=== PATIENT | male | born 1945 | race Caucasian/White ===

== ENCOUNTER 2020-01-09 15:44 | Inpatient (IN) | payer MEDICARE, OTHER, SELFPAY ==
[2020-01-09] VITALS (13 sets, daily range): BP systolic 157–187; BP diastolic 46–90; PULSE 59–82; RESP 16–28; TEMP 36.7–37.1; O2SAT 96–100; BMI 24.9; BMI 25.0
--- NOTE | ~2020-01-09 | XR_ITS ---
EXAMINATION: XR chest 2V DATE: 01/09/2020 16:52 INDICATION: Shortness of breath TECHNIQUE: PA and lateral views of the chest were obtained. COMPARISON: Chest radiograph dated 01/14/2010 FINDINGS: Opacities at the bilateral posterior sulci consistent with small bilateral pleural effusions and asso ciated compressive atelectasis in the posterior lower lobes. Additional mild reticular opacities in t he bilateral lower lung zones most likely mild pulmonary edema although differential includes less li richi pneumonia. No pneumothorax. Calcified left hilar and mediastinal lymph nodes consistent with old granulomatous disease. Cardiomegaly. Dual lead pacemaker seen with leads projecting over the expecte d locations of the right atrium and right ventricle. Median sternotomy wires and mediastinal surgical clips are seen, likely from prior coronary artery bypass grafting. Mild thoracic spondylosis. IMPRESSION: 1. Likely congestive heart failure with cardiomegaly, mild pulmonary edema in the lower lung zones an d small bilateral pleural effusions. Reviewed, dictated and finalized at location A. [facility] IMPRESSION: 1. Likely congestive heart failure with cardiomegaly, mild pulmonary edema in t he lower lung zones and small bilateral pleural effusions.
--- NOTE | 2020-01-09 15:46 | ECG_ITS ---
Measurements Intervals [place] Rate: 65 P: 127 MI: 170 QRS: -65 QRSD: 226 T: 119 QT: 512 QTc: 534 Interpretive Statements ELECTRONIC ATRIAL PACEMAKER WITH INHIBITION ELECTRONIC VENTRICULAR PACEMAKER BASELINE ARTIFACT- I, II, III, AVR, AVL, AVF NO FURTHER INTERPRETATION IS POSSIBLE ATYPICAL ECG Electronically Signed On 01-10-2020 8:14:30 REFRIGERATING ENGINEER by Mane Drake D.O.
[2020-01-09 16:12] LABS: Basophils Percent Auto 0.3 % (0.2-1.2); Eosinophils Absolute Auto 0.1 K/mm3 (0-0.3); Eosinophils Percent Auto 2.1 % (0-4.4); Hematocrit 43.5 % (42.0-52.0); Hemoglobin 14.2 g/dL (14.0-18.0); Immature Granulocyte Absolute 0.02 K/mm3 (0.00-0.031); Immature Granulocyte Percent A 0.3 % (0-0.5); Lymphocytes Absolute Auto 1.68 K/mm3 (0.9-3.2); Lymphocytes Percent Auto 25.7 % (18.3-44.2); Mean Corpuscular HGB Conc 32.6 g/dl (32-36); Mean Corpuscular Hemoglobin 27.8 pg (26-34); Mean Corpuscular Volume 85.1 fl (80-100); Mean Platelet Volume 10.4 fl (7.4-10.4); Monocytes Absolute Auto 0.6 K/mm3 (0.1-0.6); Monocytes Percent Auto 9.8 % (2.6-8.5); Neutrophils Percent Auto 61.8 % (45.5-73.1); Platelet Count Result 168 k/mm3 (150-375); Red Blood Count 5.11 M/mm3 (4.6-6.20); Red Cell Distribution Width 14.3 % (11.5-14.5); White Blood Count 6.5 K/mm3 (4.5-10.0)
[2020-01-09 16:47] LABS: Blood Urea Nitrogen 24 mg/dL (9-20); Calcium 8.5 mg/dL (8.4-10.2); Carbon Dioxide 25 mmol/L (22-30); Chloride 103 mmol/L (98-107); Estimated Glomerular Filt Rate > 60; Glucose 68 mg/dL (75-110); Potassium 3.7 mmol/L (3.4-5.0); Sodium 141 mmol/L (137-145)
--- NOTE | 2020-01-09 17:03 | ED.SOB ---
HPI - SOB/Dyspnea General Chief Complaint: Shortness of Breath/Dyspnea Stated Complaint: SOB Time Seen by Provider: 01/09/20 17:02 Source: patient and RN notes reviewed Mode of arrival: other Limitations: no limitations History of Present Illness HPI Narrative: Pt is a 74 y/o male who presents to the ED with c/o SOB with wheezing that began this morning while walking up the stairs after working for an hour and a half. Pt began to have chest heaviness pain. He states that he sat down and his sx worsened. Pt called his PCP and his general merchandise salesperson and was recommended to come to the ED for further evaluation. Pt notes that his chest pain resolved while waiting in triage. Pt last saw his general merchandise salesperson in October 2019 and his next appointment with his general merchandise salesperson is in October 2020. Pt denies a fever. Pt's general merchandise salesperson is Dr. Chavez. Pt takes ASA 325 mg daily. MD elicited complaint: shortness of breath Pertinent past history: diabetes Onset (ago): hour(s) Context: occurred during exertion Timing: now resolved Known history of: diabetes Associated symptoms: chest pain (heaviness (resovled)) Related Data Home Medications Medication Instructions Recorded Confirmed aspirin 325 mg tablet 325 mg PO DAILY 09/09/19 insulin aspart U-100 100 unit/mL 65 unit SUB-Q TID ml 09/09/19 subcutaneous cartridge Allergies Allergy/AdvReac Type Severity Reaction Status Date / Time SULFACETAMIDE (Generic Allergy Unknown Y Uncoded 03/26/16 07:07 Allergy) Review of Systems Review of Systems: All systems reviewed & are unremarkable except as noted in HPI and below Constitutional: Constitutional: Denies fever(s) Cardiovascular: Cardiovascular: Reports chest pain (heaviness (resolved)) Respiratory: Respiratory: Reports dyspnea and Reports wheezing [facility] Past Medical History Medical History (Updated 01/09/20 @ 20:24 by Maral Ng MD) Arthritis Hyperlipidemia Hypertension Hypothyroidism Irregular heart beat Pacemaker Psoriasis (a type of skin inflammation) Seasonal allergies Skin lesion of neck Type 1 diabetes with an insulin pump Wrist fracture Surgical History Surgical History (Updated 01/09/20 @ 17:27 by Halie Howard) H/O aortic valve replacement History of surgical removal of skin lesion off neck Hx of CABG Family History Family History (Updated 01/09/20 @ 17:27 by Halie Howard) Father Acute myocardial infarction Family history of heart disease in male family member before age 55 Mother Hypertension Family history of heart disease in male family member before age 55 Pacemaker Social History Social History (Updated 01/09/20 @ 17:26 by Halie Howard) Smoking packs per day: 3 Smoking cigarettes per day: 60.0 Years smoked: 10 Smoking pack-years: 30.00 Smoking status: Former smoker Tobacco type: cigarettes Smoking end date: 11/16/83 Alcohol intake: never Gender identity (if verbalized by the patient): Female Exam Narrative: Exam Narrative: GENERAL: Well-appearing, well-nourished, and in no acute distress. HEAD: Normocephalic, atraumatic EYES: PERRLA and EOMI, conjunctiva clear without discharge THROAT:Mucous membranes moist, Oropharynx normal without erythema, exudate, peritonsillar swelling or fluctuance NECK: Supple, without lymphadenopathy or mass RESPIRATORY: No respiratory distress, Airway patent, Respirations non-labored, Expiratory wheezing posterior bilaterally HEART: Regular rate and rhythm. harsh systolic murmur. Normal peripheral pulses. ABDOMEN: Soft, nontender, nondistended, normal active bowel sounds. No masses. No rebound or guarding, No organomegaly. EXTREMITIES: bilateral 2+ pitting lower extremity edema, normal strength with full range of motion. SKIN: Warm, dry, normal color without rash NEURO: Alert and oriented x3. CN 2-12 grossly intact. No focal deficits. PSYCH: Normal mood and affect. Course Consultations Consulta
--- NOTE | 2020-01-09 17:28 | PC.NURSE ---
called lab to add on labs ordered and lamont said she would check for the blood when she got time.
[2020-01-09] MEDS: ALBUTEROL SULFATE NEB 2.5 MG/0.5 ML INH 5 MG INHALATION (17:41)
[2020-01-09] MEDS: IPRATROPIUM BR 0.02% INH SOLN 0.5 MG/2.5 ML VIAL INHALATION (17:41)
[2020-01-09] MEDS: FUROSEMIDE INJ 40 MG/4 ML VIAL IV PUSH (17:59)
[2020-01-09] MEDS: NITROGLYCERIN OINTMENT 1 INCH DOSE TRANSDERM (18:00)
[2020-01-09 18:14] LABS: Glucose Point of Care 45 (65-105)
--- NOTE | 2020-01-09 18:16 | PC.NURSE ---
Patient given apple juice x2 tp treat low blood glucose per EDP. Heart Healthy diet tray ordered for patient at this time. EDP aware of patient's blood glucose
--- NOTE | 2020-01-09 18:25 | PC.NURSE ---
REDRAWS SENT TO LAB
[2020-01-09 18:27] LABS: Prothrombin Time 12.8 Seconds (11.1-14.7)
[2020-01-09 18:44] LABS: Glucose Point of Care 84 (65-105)
[2020-01-09 18:56] LABS: NT Pro B Type Natriuretic Pept 4030 PG/ML (5-100)
--- NOTE | 2020-01-09 21:01 | ADMGEN ---
This patient, Ricci Olvera, was admitted to IMU Room 209-01. Patient/family oriented to hospital policies and general routines including ID bracelet, bed and alarms, visiting hours, pain management, procedures, bathroom and other care routines, personal items, smoking policy, room service/diet, and visiting hours. Valuables list has been completed. Information on how to activate the Rapid Response Team has been discussed. Patient/Family are encouraged to report perceived risks to care and to ask questions if they do not understand what they are told or what they should do.
[2020-01-09 21:37] LABS: Glucose Point of Care 134 (65-105)
--- NOTE | 2020-01-09 22:00 | PM.IMHP ---
H&P: HPI History of Present Illness Chief complaint: CHF EXACERBATION,ELEVATED TROPONIN Narrative: Date and time of patient contact: 01/09/2020 at 10:00 p.m. Ricci Olvera is a 74 year old male with a past medical history of single-vessel coronary artery disease, aortic valve replacement and diabetes mellitus on insulin pump who presented to the ER from home via private vehicle due to shortness of breath and chest heaviness. The patient reports chronic throat clearing for the last couple of months. He is very active in vigorous at baseline. He had noticed some wheezing when lying down for the last 3 weeks. Over the last few hours when he was lying down in the ER he noticed orthopnea. 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 On Thursday a similar episode occurred. Today he had noticed wheezing when sitting still accompanied by a fleeting episode of chest heaviness that lasted only a few seconds. He called Dr. Chavez's office and was directed to come into the ER for evaluation. Patient denies any paroxysmal nocturnal dyspnea, lower extremity swelling or palpitations. He denies having an actual diagnosis of CHF. According to cardiology notes patient has systolic dysfunction without heart failure at the time of his last cardiology visit in July 2019. He had an echocardiogram and Dr. 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 He had a pacemaker placed back in 2000 due to what sounds complete heart block with his pacemaker being upgraded to a Biotronik dual chamber pacemaker in August 2018. He is a diabetic and is on insulin pump. His hemoglobin A1c has been below 7 for several years. He does have intermittent episodes of hypoglycemia that occur mostly at night. His last hypoglycemic episode was prior to coming to the ER. In his initial glucose in the ER was 45. He took some oral nutrition is repeat glucose was in the 80s and when he arrived to the floor his glucoses were in the 130s. His supervisor instrument maintenance tells him that he has some mild peripheral neuropathy on microfilament testing but the patient is asymptomatic. He denies any cough, congestion, fevers or chills. He has been taking his medications as directed. However his blood pressures were moderately elevated and continued to be so. His most recent blood pressure 177/52. Review of Systems Review of Systems: Narrative: Except as documented in the HPI, all other systems were reviewed and are negative. 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 His pacemaker was replaced in 2018 with a Biotronik and dual chamber device Hyperlipidemia Hypertension Hypothyroidism Irregular heart beat Pacemaker Psoriasis (a type of skin inflammation) Seasonal allergies Skin lesion of neck Type 1 diabetes with an insulin pump Wrist fracture Surgical History Surgical History (Updated 01/09/20 @ 23:49 by Lalita Mcallister DO) H/O aortic valve replacement Medtronic 23 mm freestyle valve aortic valve replacement with single-vessel bypass with aortic root plasty 2015. He has perivalvular aortic valve insufficiency History of surgical removal of skin lesion off neck Hx of CABG One vessel CABG performed at [facility] in 2016 the same time as is aortic valve was replaced with a porcine valve per his report Social History Social History (Updated 01/09/20 @ 23:50 by Lalita Mcallister DO) Social History: Primary care
[2020-01-09] MEDS: METOPROLOL TARTRATE INJ 5 MG/5 ML VIAL IV PUSH (23:35)
[2020-01-09 23:50] LABS: Troponin I 0.086 ng/mL (0.000-0.034)
[2020-01-10] VITALS (14 sets, daily range): BP systolic 136–171; BP diastolic 37–51; PULSE 63–75; RESP 18–20; TEMP 36.2–36.8; O2SAT 95–99
--- NOTE | 2020-01-10 | ECHO_ITS ---
Patient Info Name: Ricci Olvera Age: 74 years : 1945 Gender: Male Ht: 71 in Wt: 181 lbs BSA: 2.04 m2 HR: 70 bpm BP: 145 / 50 mmHg Heart Rhythm: Paced Technical Quality: Good Exam Date: 01/10/2020 11:06 AM Exam Location: [facility] Patient Status: Inpatient Admit Date: 01/09/2020 Staff Ordering Physician: Ankit Marshall MD Manual Arts Teacher: Agusto Francisco RDCS Attending Provider: Lalita Mcallister DO Exam Type: CA echo dop color flow w con Study Info Indications I50.9 - Heart failure, unspecified Complete two-dimensional, color flow and Doppler transthoracic echocardiogram is performed with contrast to opacify the left ventrical and to improve the deliniation of the left ventrical endocarial boarders. Strain analysis performed. Contrast/Agitated Saline Contrast/Ag. Saline: Definity Amount: 2.00 ml Administered By: Viky Frank RN Existing IV Access: Yes History/Risk Factors CHF w/ 1vCABG and AVR, heart block s/p PPM, HTN, SOB, elevated trops. Summary 1. Left ventricular chamber dimension is severely enlarged. 2. Left ventricular systolic function is severely reduced, estimated at 20-25%. 3. There is moderately increased left ventricular wall thickness. 4. Left ventricular septal wall motion is abnormal with septal motion related to pacing. 5. The left ventricular diastolic function is grade I diastolic dysfunction. 6. The apical septum is akinetic. 7. The inferior wall, anterior wall, anterolateral wall, anteroseptal wall, inferolateral wall, basal inferoseptal, and mid inferoseptal are hypokinetic. 8. The apical cap is dyskinetic. 9. Left atrial chamber dimension is mildly enlarged. 10. There is mild aortic valve stenosis with a peak velocity of 241.40 cm/s, mean gradient of 10 mmHg, and aortic valve area of 1.59 cm2. 11. The prosthetic aortic valve is not well visualized. The aortic insufficiency appears to be perivalvular and is at least moderate. 12. There is moderate to severe mitral valve regurgitation. 13. There is mild tricuspid valve regurgitation. 14. Mild pulmonary hypertension, estimated pulmonary arterial systolic pressure is 36 mmHg. 15. There is mild pulmonic regurgitation. Left Ventricle Left ventricular chamber dimension is severely enlarged. Left ventricular systolic function is severely reduced, estimated at 20-25%. There is moderately increased left ventricular wall thickness. Left ventricular septal wall motion is abnormal with septal motion related to pacing. The left ventricular diastolic function is grade I diastolic dysfunction. The apical septum is akinetic. The inferior wall, anterior wall, anterolateral wall, anteroseptal wall, inferolateral wall, basal inferoseptal, and mid inferoseptal are hypokinetic. The apical cap is dyskinetic. Right Ventricle Right ventricular chamber dimension is normal. Right ventricular systolic function is normal. Left Atria Left atrial chamber dimension is mildly enlarged. Right Atria Right atrial chamber dimension is normal. Atrial Septum Intact interatrial septum visualized by color flow imaging. Aortic Valve The aortic valve is not well visualized. There is mild aortic valve stenosis with a peak velocity of 241.40 cm/s, mean gradient of 10 mmHg, and aortic valve area of 1.59 cm2. There is moderate aortic valve regurgitation. The prosthetic aortic valve is not well visualized. The aortic insufficiency appears to be perivalvular and
[2020-01-10 02:41] LABS: Blood Urea Nitrogen 22 mg/dL (9-20); Calcium 8.4 mg/dL (8.4-10.2); Carbon Dioxide 29 mmol/L (22-30); Chloride 103 mmol/L (98-107); Estimated CRCL calculation 60 ml/min; Estimated Glomerular Filt Rate > 60; Glucose 75 mg/dL (75-110); Potassium 3.5 mmol/L (3.4-5.0); Sodium 140 mmol/L (137-145)
[2020-01-10] MEDS: LEVOTHYROXINE SODIUM 100 MCG TABLET PO (05:15)
[2020-01-10 08:29] LABS: Glucose Point of Care 70 (65-105)
--- NOTE | 2020-01-10 08:44 | PM.CNCAR ---
Assessment and Plan Assessment and plan (1) Acute on chronic systolic CHF (congestive heart failure): Code(s): I50.23 - Acute on chronic systolic (congestive) heart failure Status: Acute Assessment and Plan: 74-year-old male with history of CAD, valvular heart disease/severe aortic regurgitation status post aortic valve placement using a Medtronic freestyle aortic root heart valve 23 mm; attachment of coronary arteries with buttons of aortic tissue to the freestyle heart valve, patch aortoplasty over anterior 2/3 of aorta to bridge the gap between the [place] aorta and aortic valve; MONSON to LAD on 09/21/2007 at [facility]; CHF with reduced ejection fraction, history of AV block status post Biotronik pacemaker placement, diabetes mellitus on insulin. Patient admitted with acute on chronic CHF with reduced ejection fraction. EKG shows AV paced rhythm. Troponins are mildly elevated, and likely non ACS later in the setting of CHF exacerbation. -continue diuresis with IV furosemide, to be switched to p.o. tomorrow if volume status is improving. -change metoprolol tartrate to carvedilol at low dose, to be optimized as tolerated; continue lisinopril. May consider switching lisinopril to sacubitril/valsartan after 36 hour washout as an outpatient. Additional medication to be considered include spironolactone. -continue aspirin and statin. -patient's previous echocardiogram reported moderate LV systolic dysfunction with moderate aortic regurgitation with possible perivalvular leak. Will repeat echocardiogram with Doppler to reassess LV function, wall motion and any progression of the aortic regurgitation. Need for further testing including ANJUM to be determined. Patient will likely need further workup including ischemic workup. It is uncertain at this point how much of patient's LV dysfunction is contributed by degenerative aortic valve causing aortic regurgitation, and from possible underlying ischemia. If patient has significant aortic regurgitation, then his surgical candidacy will need to be determined after CT surgical consultation. Obviously, he will need ischemic workup prior to surgical evaluation. The plan was discussed with the patient and the is in agreement. (2) History of coronary artery bypass graft x 1: Code(s): Z95.1 - Presence of aortocoronary bypass graft Status: Acute Assessment and Plan: Aspirin, statin. See plan above (3) History of aortic root repair: Code(s): Z98.890 - Other specified postprocedural states Status: Acute Assessment and Plan: See plan above (4) History of aortic valve replacement with bioprosthetic valve: Code(s): Z95.3 - Presence of xenogenic heart valve Status: Acute Assessment and Plan: See plan above. Will do echo with Doppler, need for ANJUM to be determined. History of Present Illness History of Present Illness Consult date/time: 01/10/20 08:44 Due to consult: 01/09/2020 Reason for consult: Congestive heart failure Requesting physician:Dr Ng Chief complaint: Worsening shortness of breath HPI: 74-year-old male with history of CAD, valvular heart disease/severe aortic regurgitation status post aortic valve placement using a Medtronic freestyle aortic root heart valve 23 mm; attachment of coronary arteries with buttons of aortic tissue to the freestyle heart valve, patch aortoplasty over anterior 2/3 of aorta to bridge the gap between the [place] aorta and aortic valve; MONSON to LAD on 09/21/2007 at [facility]; CHF with reduced ejection fraction, history of AV block status post Biotronik pacemaker placement, diabetes mellitus on insulin. Patient was admitted to [facility] on 01/09/2020 with complaints of shortness of breath that got worse on the day of admission. Patient states that he has been wheezing especially while lying flat for about 4 weeks. His symptoms got worse over time, and on the day
[2020-01-10] MEDS: POTASSIUM CHLORIDE 20 MEQ TABLET 40 MEQ PO (10:20)
[2020-01-10] MEDS: carvediloL 3.125 MG TABLET PO ×2 (10:21→20:56)
[2020-01-10] MEDS: lisinopriL 5 MG TABLET PO (10:21)
[2020-01-10] MEDS: OMEGA 3 POLYUNSAT FATTY ACIDS 1 GM CAP PO (10:21)
[2020-01-10] MEDS: ASPIRIN 325 MG TABLET PO (10:21)
[2020-01-10] MEDS: ATORVASTATIN 20 MG TABLET PO (10:22)
[2020-01-10] MEDS: ENOXAPARIN 40 MG/0.4 ML SYRINGE SUB-Q ×2 (10:22→20:56)
[2020-01-10] MEDS: MULTIVITAMINS /C LUTEIN (CENTRUM SILVER) TABLET *BKC 1 TAB PO (10:22)
[2020-01-10] MEDS: FUROSEMIDE INJ 40 MG/4 ML VIAL IV PUSH (10:23)
[2020-01-10] MEDS: PERFLUTREN LIPID MICROSPHERES 1.5 ML VIAL DILUTED TO 10 ML TOTAL VOLUME IV PUSH (11:49)
[2020-01-10 13:22] LABS: Glucose Point of Care 123 (65-105)
--- NOTE | 2020-01-10 16:55 | PM.IMPN ---
Progress Note: A&P Assessment and Plan (1) Acute on chronic systolic CHF (congestive heart failure): Code(s): I50.23 - Acute on chronic systolic (congestive) heart failure Status: Acute Assessment and Plan: IV Lasix, RAFAEL-inhibitor, and beta-osbaldo has been changed to Coreg. EF only 20-25% so will add spironolactone also Cardiology decide whether needs ANJUM and/or repeat catheterization (2) History of coronary artery bypass graft x 1: Code(s): Z95.1 - Presence of aortocoronary bypass graft Status: Acute Assessment and Plan: Troponins are flat and probable secondary to heart failure and not acute coronary syndrome. Continue aspirin, statin, and beta-osbaldo (3) History of aortic valve replacement with bioprosthetic valve: Code(s): Z95.3 - Presence of xenogenic heart valve Status: Acute Assessment and Plan: Paravalvular leak which has been present previously seen again. May need ANJUM are catheterization to evaluate further Especially with moderate IN also (4) Diabetes mellitus with hypoglycemia: Qualifiers: Diabetes mellitus type: type 1 Diabetes mellitus complication detail: without coma Qualified Code(s): E10.649 - Type 1 diabetes mellitus with hypoglycemia without coma Code(s): E11.649 - Type 2 diabetes mellitus with hypoglycemia without coma Status: Acute Assessment and Plan: Continue insulin pump (5) Hypertension: Qualifiers: Hypertension type: essential hypertension Qualified Code(s): I10 - Essential (primary) hypertension Code(s): I10 - Essential (primary) hypertension Status: Acute Assessment and Plan: Blood pressure adequate will increase Rafael and beta-osbaldo as tolerated (6) DVT prophylaxis: Code(s): Z29.9 - Encounter for prophylactic measures, unspecified Status: Acute Assessment and Plan: Lovenox Subjective Date/time seen: 01/10/20 16:55 Interval history: Date of visit 01/10. 74-year-old white male with bioprosthetic aortic valve and history of MONSON graft to the LAD at the time of his surgery presented with increasing shortness of breath. Thought to have acute on chronic systolic heart failure. Was given IV Lasix in the emergency room and feels much better already. Had some minimal edema which has subsided. No chest pain. Exam Narrative: Exam Narrative: Blood pressure 144/50 pulse is 70 and regular afebrile sat and 90-94% on room air Pupil equal reactive to light sclera anicteric Lungs are clear hear no wheezing or consolidation CV regular hear no definite murmurs Abdomen is soft nontender no masses Extremities without edema good distal pulses Neuro alert pleasant cooperative no focal deficits Objective Data Vital Signs Vital Signs: Vital Signs - 24 hr 01/09/20 17:02 01/09/20 17:16 01/09/20 17:41 Temperature Pulse Rate 73 71 70 Respiratory Rate 19 28 H 18 Blood Pressure 169/63 H Pulse Oximetry 97 96 01/09/20 17:47 01/09/20 18:00 01/09/20 18:16 Temperature Pulse Rate 70 68 73 Respiratory Rate 18 24 H 26 H Blood Pressure 176/65 H 187/66 H Pulse Oximetry 98 01/09/20 18:22 01/09/20 19:31 01/09/20 21:10 Temperature 36.7 C Pulse Rate 73 74 73 Respiratory Rate 20 16 20 Blood Pressure 187/66 H 167/66 H 177/52 H Pulse Oximetry 100 98 98 01/09/20 22:00 01/09/20 23:30 01/09/20 23:35 Temperature 36.7 C Pulse Rate 70 59 L 82 Respiratory Rate 20 Blood Pressure 157/46 H Pulse Oximetry 97 01/10/20 00:00 01/10/20 02:00 01/10/20 04:00 Temperature 36.8 C Pulse Rate 75 73 73 Respiratory Rate 18 Blood Pressure 136/37 L Pulse Oximetry 98 01/10/20 06:00 01/10/20 08:00 01/10/20 08:13 Temperature 36.6 C Pulse Rate 68 68 71 Respiratory Rate 20 Blood Pressure 145/50 H Pulse Oximetry 97 01/10/20 10:21 01/10/20 13:27 Temperature 36.2 C L Pulse Rate 63 73 Respiratory Rate 20 Blood Pressure 149/47 H Pu
[2020-01-10 17:27] LABS: Glucose Point of Care 52 (65-105)
[2020-01-10 17:44] LABS: Glucose Point of Care 94 (65-105)
[2020-01-10 21:01] LABS: Glucose Point of Care 157 (65-105)
[2020-01-11] VITALS (11 sets, daily range): BP systolic 129–163; BP diastolic 47–53; PULSE 65–80; RESP 18; TEMP 36.1–36.7; O2SAT 96–100
[2020-01-11 05:04] LABS: Blood Urea Nitrogen 22 mg/dL (9-20); Calcium 8.2 mg/dL (8.4-10.2); Carbon Dioxide 28 mmol/L (22-30); Chloride 101 mmol/L (98-107); Estimated CRCL calculation 60 ml/min; Estimated Glomerular Filt Rate > 60; Glucose 74 mg/dL (75-110); Potassium 3.7 mmol/L (3.4-5.0); Sodium 139 mmol/L (137-145)
[2020-01-11 05:05] LABS: Alanine Aminotransferase 45 U/L (4-50); Albumin Level 3.2 g/dL (3.5-5.1); Alkaline Phosphatase 62 U/L (38-126); Aspartate Amino Transferase 35 U/L (17-59); Bilirubin,Total 0.8 mg/dL (0.2-1.3)
[2020-01-11 05:34] LABS: Thyroid Stimulating Hormone 0.576 uIU/mL (0.465-4.680)
[2020-01-11] MEDS: HOME MEDICATION 1 EACH XX (06:22)
[2020-01-11] MEDS: LEVOTHYROXINE SODIUM 100 MCG TABLET PO (06:22)
--- NOTE | 2020-01-11 07:53 | PM.IMPN ---
Progress Note: A&P Assessment and Plan (1) Acute on chronic systolic CHF (congestive heart failure): Code(s): I50.23 - Acute on chronic systolic (congestive) heart failure Status: Acute Assessment and Plan: IV Lasix, RAFAEL-inhibitor, and beta-osbaldo has been changed to Coreg and icreased to 6.25 with good bp EF only 20-25% so added spironolactone also Cardiology decide whether needs ANJUM and/or repeat catheterization (2) History of coronary artery bypass graft x 1: Code(s): Z95.1 - Presence of aortocoronary bypass graft Status: Acute Assessment and Plan: Troponins are flat and probable secondary to heart failure and not acute coronary syndrome. Continue aspirin, statin, and beta-osbaldo (3) History of aortic valve replacement with bioprosthetic valve: Code(s): Z95.3 - Presence of xenogenic heart valve Status: Acute Assessment and Plan: Paravalvular leak which has been present previously seen again. May need ANJUM are catheterization to evaluate further Especially with moderate DC also (4) Diabetes mellitus with hypoglycemia: Qualifiers: Diabetes mellitus type: type 1 Diabetes mellitus complication detail: without coma Qualified Code(s): E10.649 - Type 1 diabetes mellitus with hypoglycemia without coma Code(s): E11.649 - Type 2 diabetes mellitus with hypoglycemia without coma Status: Acute Assessment and Plan: Continue insulin pump (5) Hypertension: Qualifiers: Hypertension type: essential hypertension Qualified Code(s): I10 - Essential (primary) hypertension Code(s): I10 - Essential (primary) hypertension Status: Acute Assessment and Plan: Blood pressure adequate will increase Rafael and beta-osbaldo as tolerated (6) DVT prophylaxis: Code(s): Z29.9 - Encounter for prophylactic measures, unspecified Status: Acute Assessment and Plan: Lovenox Subjective Date/time seen: 01/11/20 07:53 Interval history: Date of visit 01/11. 74-year-old white male with bioprosthetic aortic valve and history of MONSON graft to the LAD at the time of his surgery presented with increasing shortness of breath. acute on chronic systolic heart failure. Continues to feel well with diuresis . No SOB or CP.. Had some minimal edema which has subsided. Exam Narrative: Exam Narrative: Blood pressure 140/50 pulse is 66 and regular afebrile sat and 90-94% on room air Pupil equal reactive to light sclera anicteric Lungs are clear hear no wheezing or consolidation CV regular SAFIA LLSB and radiating to axilla, diastolic murmer heard best 2 R intercostal space Abdomen is soft nontender no masses Extremities without edema good distal pulses Neuro alert pleasant cooperative no focal deficits Objective Data Vital Signs Vital Signs: Vital Signs - 24 hr 01/10/20 08:00 01/10/20 08:13 01/10/20 10:00 Temperature 36.6 C Pulse Rate 68 71 72 Respiratory Rate 20 Blood Pressure 145/50 H Pulse Oximetry 97 01/10/20 10:21 01/10/20 12:00 01/10/20 13:27 Temperature 36.2 C L Pulse Rate 63 73 73 Respiratory Rate 20 Blood Pressure 149/47 H Pulse Oximetry 95 01/10/20 16:00 01/10/20 18:00 01/10/20 20:00 Temperature 36.2 C L 36.6 C Pulse Rate 66 68 69 Respiratory Rate 20 18 Blood Pressure 171/51 H 153/44 H Pulse Oximetry 98 99 01/10/20 22:00 01/11/20 00:00 01/11/20 02:00 Temperature 36.6 C Pulse Rate 70 80 69 Respiratory Rate 18 Blood Pressure 150/47 H Pulse Oximetry 96 01/11/20 03:50 01/11/20 04:00 01/11/20 06:00 Temperature 36.7 C Pulse Rate 79 67 65 Respiratory Rate 18 Blood Pressure Pulse Oximetry 99 Intake/Output Intake/Output: Intake & Output 01/08/20 01/09/20 01/10/20 01/11/20 23:59 23:59 23:59 23:59 Intake Total 850 350 Output Total 3251 700 Balance -2401 -350 Meds/Results Medications: Active Medications Generic Name Dose Route Start La
[2020-01-11] MEDS: POTASSIUM CHLORIDE 20 MEQ TABLET 40 MEQ PO (08:57)
[2020-01-11] MEDS: ASPIRIN 325 MG TABLET PO (08:57)
[2020-01-11] MEDS: ATORVASTATIN 20 MG TABLET PO (08:57)
[2020-01-11] MEDS: carvediloL 6.25 MG TABLET PO (08:58)
[2020-01-11] MEDS: FUROSEMIDE INJ 40 MG/4 ML VIAL IV PUSH (09:00)
[2020-01-11] MEDS: MULTIVITAMINS /C LUTEIN (CENTRUM SILVER) TABLET *BKC 1 TAB PO (09:02)
[2020-01-11 09:03] LABS: Glucose Point of Care 75 (65-105)
[2020-01-11] MEDS: SPIRONOLACTONE 25 MG TABLET PO (09:03)
[2020-01-11] MEDS: OMEGA 3 POLYUNSAT FATTY ACIDS 1 GM CAP PO (09:03)
[2020-01-11] MEDS: ENOXAPARIN 40 MG/0.4 ML SYRINGE SUB-Q (09:06)
[2020-01-11] MEDS: lisinopriL 10 MG TABLET PO (09:06)
--- NOTE | 2020-01-11 11:05 | PM.PNCARD ---
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 Agree with Dr. Marshall that this gentleman will require further evaluation of his aortic valve as well as his coronary disease and then surgical consultation. His previous surgeon at [facility] has retired and therefore will not be available to see this gentleman in consultation. I will contact his colleagues at that hospital to determine if the best course of action is to refer him to there valve Clinic for referral/consultation or if the case is complex enough for he should be referred downtown to [place]. The patient is now asymptomatic I will shift his furosemide to a p.o. regimen of 40 mg daily and he seems to be stable enough to be discharged from the hospital. I will determine referral to a valve clinical education consultant as an outpatient Time with patient: 15 - 25 minutes Subjective Date/time seen: Date of service: 01/11/20 11:05 Interval history: Follow-up visit for congestive heart failure in patient with valvular heart disease, coronary artery disease and complete heart block. Patient states he is feeling well today after the 1st 48 hours in the hospital with diuresis he is no longer short of breath and offers no complaints. Exam Const: General: comfortable and no acute distress HENMT: Mouth: Yes moist mucous membranes Eyes: Sclera: sclerae normal Pupils: Equal, round and reactive pupils present Neck: Neck: supple and no JVD Thyroid: thyroid normal Resp: Effort & Inspection: normal respiratory effort Auscultation: clear to auscultation bilaterally Cardio: Rate: regular rate and tachycardic Rhythm: regular rhythm Other: Patient has a grade 2-3 diastolic decrescendo murmur of aortic valve regurgitation audible loudest at the right upper sternal border. GI: Auscultation: normal bowel sounds Neuro: Cognition (Neuro): normal cognition Extrem: General: normal to inspection Objective Data Vital Signs Vital Signs: Vital Signs - 24 hr 01/10/20 12:00 01/10/20 13:27 01/10/20 16:00 Temperature 36.2 C L Pulse Rate 73 73 66 Respiratory Rate 20 Blood Pressure 149/47 H Pulse Oximetry 95 02/25/20 18:00 01/10/20 20:00 01/10/20 22:00 Temperature 36.2 C L 36.6 C Pulse Rate 68 69 70 Respiratory Rate 20 18 Blood Pressure 171/51 H 153/44 H Pulse Oximetry 98 99 01/11/20 00:00 01/11/20 02:00 01/11/20 03:50 Temperature 36.6 C 36.7 C Pulse Rate 80 69 79 Respiratory Rate 18 18 Blood Pressure 150/47 H Pulse Oximetry 96 99 01/11/20 04:00 01/11/20 06:00 01/11/20 08:00 Temperature 36.1 C L Pulse Rate 67 65 70 Respiratory Rate 18 Blood Pressure 163/53 H Pulse Oximetry 100 01/11/20 08:58 Temperature Pulse Rate 71 Respiratory Rate Blood Pressure Pulse Oximetry Intake/Output Intake/Output: Intake & Output 01/08/20 01/09/20 01/10/20 01/11/20 23:59 23:59 23:59 23:59 Intake Total 850 590 Output Total 3251 700 Balance -2401 -110 Meds/Results Medications: Active Medications Generic Name Dose Route Start Last Admin Trade Name Freq PRN Reason Stop Dose Admin Aspirin 325 mg 01/10/20 09:00 01/11/20 08:57 Aspirin PO 325 mg DAILY [facility] Administration Atorvastatin Calcium 20 mg 01/10/20 09:00 01/11/20 08:57 Lipitor PO 20 mg [id number] NATHALY Administration Carvedilol 6.25 mg 01/11/20 09:00 01/11/20 08:58 Coreg PO 6.25 mg Q12HR [facility] Administration Dextrose 12.5 gm 01/09/20 23:17 Dextrose 50% Syringe IV PUSH PRN PRN Hypoglycemia Protocol Enoxaparin Sodium 40 mg 01/10/20 09:00 01/11/20 09:06 Lovenox SUB-Q 40 mg DAILY [facility] A
[2020-01-11 12:17] LABS: Glucose Point of Care 108 (65-105)
--- NOTE | 2020-01-11 18:02 | PM.DS ---
DS: Diagnosis Admitting Diagnosis Admitting Diagnosis: Acute systolic (congestive) heart failure Discharge Diagnosis (1) Acute on chronic systolic CHF (congestive heart failure): Code(s): I50.23 - Acute on chronic systolic (congestive) heart failure Status: Acute Assessment and Plan: Responded to IV Lasix, RAFAEL-inhibitor, and beta-osbaldo has been changed to Coreg and icreased to 6.25 with good bp EF only 20-25% so added spironolactone also Cardiology decided to send to [facility] valve clinic to determine whether needs ANJUM and/or repeat catheterization for possible repeat valve surgery (2) History of coronary artery bypass graft x 1: Code(s): Z95.1 - Presence of aortocoronary bypass graft Status: Acute Assessment and Plan: Troponins are flat and probable secondary to heart failure and not acute coronary syndrome. Continue aspirin, statin, and beta-osbaldo (3) History of aortic valve replacement with bioprosthetic valve: Code(s): Z95.3 - Presence of xenogenic heart valve Status: Acute Assessment and Plan: Paravalvular leak which has been present previously seen again. May need ANJUM are catheterization to evaluate further . As above Especially with moderate MT also (4) Diabetes mellitus with hypoglycemia: Qualifiers: Diabetes mellitus type: type 1 Diabetes mellitus complication detail: without coma Qualified Code(s): E10.649 - Type 1 diabetes mellitus with hypoglycemia without coma Code(s): E11.649 - Type 2 diabetes mellitus with hypoglycemia without coma Status: Acute Assessment and Plan: Continue insulin pump, well controlled (5) Hypertension: Qualifiers: Hypertension type: essential hypertension Qualified Code(s): I10 - Essential (primary) hypertension Code(s): I10 - Essential (primary) hypertension Status: Acute Assessment and Plan: Blood pressure adequate and increased Rafael and beta-osbaldo DS: Summary Hospital Course Hospital Course: 74-year-old white male status post aortic valve replacement and MONSON bypass graft of the LAD in the distant past. Presented with increasing shortness of breath on exertion and weakness. Found to be will look be mild systolic failure and was diuresed. Immediately got relieve within a short period of time. Echo revealed EF of only 20-25% with a periaortic prosthetic valve leak, and moderate mitral insufficiency. Is RAFAEL-inhibitor was increased to 10 mg, beta-osbaldo was changed to Coreg, Lasix was added daily along with spironolactone. Cardiology will have him follow-up with a valve clinic at [facility] for further evaluation and intervention Will have a BMP drawn in a week Time Spent with Patient Time attestation: Total time spent providing and/or coordinating discharge services: 35 minutes Exam Narrative: Exam Narrative: Condition on discharge Blood pressure 130/50 pulse 66 satting 97% on room air Lungs clear CV systolic murmur lower left sternal border to the 2nd right intercostal space and separate murmur systolic to the axilla Also diastolic murmur heard best in the 2nd right intercostal space Abdomen is benign Extremities without edema Patient was up ambulating without any dyspnea feeling much better than on admission after diuresis DS: Data Data Completed and Pending Labs on day of discharge: Labs from last 24 hours 01/11/20 01/11/20 01/11/20 11:55 08:16 04:19 Sodium Potassium Chloride Carbon Dioxide BUN Creatinine Estim Creat Clear Calc Estimated GFR Glucose POC Capillary Glucose 108 75 Calcium Total Bilirubin 0.8 Direct Bilirubin 0.0 AST 35 ALT 45 Alkaline Phosphatase 62 Total Protein 6.0 L Albumin 3.2 L TSH 0.576 01/11/20 01/10/20 04:19 20:52 Sodium 139 Potassium 3.7 Chloride 101 Carbon Dioxide 28 BUN 22 H Creatinine 1.00 Estim Creat Clear Calc 60 Estimated GFR > 60
== END 2020-01-11 16:27 | disposition home or self-care (01) | DRG 292 ==
LOC: ANHED 20:24 → ANHIMU 20:38
PROVIDERS: Admitting Provider Internal Medicine; Emergency Provider General Practice; PCP Internal Medicine; Visit Provider Internal Medicine
DX: I11.0 Hypertensive heart disease with heart failure (principal); T82.223A Leakage of biological heart valve graft, initial encounter; I50.23 Acute on chronic systolic (congestive) heart failure; I25.10 Atherosclerotic heart disease of native coronary artery without angina pectoris; Z79.4 Long term (current) use of insulin; Z96.41 Presence of insulin pump (external) (internal); M19.90 Unspecified osteoarthritis, unspecified site; N52.9 Male erectile dysfunction, unspecified; Z95.0 Presence of cardiac pacemaker; L40.9 Psoriasis, unspecified; Z95.1 Presence of aortocoronary bypass graft; F17.210 Nicotine dependence, cigarettes, uncomplicated; E10.649 Type 1 diabetes mellitus with hypoglycemia without coma; Z95.3 Presence of xenogenic heart valve
CPT/HCPCS: 36415; 71046; 80048; 80076; 82948; 83880; 84443; 84484; 85025; 85610; 85730; 93005; 94640; 96372; 96374; 96375; 96376; 99285; A9270; C8929; G0378; J1650; J1940; Q9957